=== PATIENT | female | born 1970 | race Two or more races ===

== ENCOUNTER → 2025-05-29 | Outpatient (CLI) | payer MEDICAID, SELFPAY ==
--- NOTE | 2025-05-29 15:00 | XR_ITS ---
Examination: Screening digital mammography, bilateral Computer aided detection 3-D breast Tomosynthesis, bilateral Date and time of exam: May 29, 2025 1824 hours Indication: Screening Technique: Nonmagnified MLO, CC views of the breasts to been obtained, reconstructed from 3-D Tomosynthesis images. R2 computer aided detection program utilized for evaluation of suspicious masses and/or abnormal calcifications. 3-D Tomosynthesis images obtained. Findings: The breasts are heterogeneously dense which may obscure small masses Benign calcifications No suspicious masses Suspicious for small extracapsular breast implant rupture upper right breast on the MLO view Impression: BI-RADS category II: Benign Findings. Recommend 1 year follow-up mammogram. Consider breast MRI without contrast follow-up to exclude small extracapsular right breast implant rupture
== END | disposition home or self-care (01) ==
LOC: CDIM 15:08
PROVIDERS: Referring Provider Nurse Practitioner Family; Visit Provider Nurse Practitioner Family
DX: Z12.31 Encounter for screening mammogram for malignant neoplasm of breast (principal); R92.323 Mammographic fibroglandular density, bilateral breasts; R92.8 Other abnormal and inconclusive findings on diagnostic imaging of breast
CPT/HCPCS: 77063; 77067

== ENCOUNTER → 2025-09-17 | Outpatient (CLI) | payer MEDICAID, SELFPAY ==
--- NOTE | 2025-09-17 13:51 | XR_ITS ---
Examination: Pelvic ultrasound, transabdominal, complete Technique: Transabdominal ultrasound of the pelvis performed using grayscale imaging Date and time of exam: 09/17/2025, 2:11 p.m. Findings: The anteverted uterus measures 8.4 x 2.5 x 5.5 cm. A hypoechoic lesion projects along the right lateral uterine fundus, measured at 4.1 x 2.8 x 3.4 cm. It appears that the right ovary may be immediately adjacent to this region, measured at 3.2 x 1.7 x 1.7 cm, hypoechoic in appearance and similar in appearance to the aforementioned hypoechoic lesion. The left ovary is obscured by bowel gas. Color Doppler shows intact right ovarian blood flow. No free pelvic fluid. IMPRESSION: Limited transabdominal views of the pelvis show a hypoechoic lesion along the right lateral uterine fundus. Differential diagnosis includes uterine fibroid or alternatively endometrioma related to the adjacent right ovary. Further evaluation with endovaginal pelvic ultrasound or ideally pelvic MRI could be obtained.
== END | disposition home or self-care (01) ==
PROVIDERS: PCP Student in an Organized Health Care Education/Training Program; Referring Provider Student in an Organized Health Care Education/Training Program; Visit Provider Student in an Organized Health Care Education/Training Program
DX: N85.9 Noninflammatory disorder of uterus, unspecified (principal)
CPT/HCPCS: 76856